=== PATIENT | male | born 1965 | race Caucasian/White ===

== ENCOUNTER 2025-08-14 06:09 | Day surgery (SDC) | payer BC, OTHER ==
[2025-08-14] MEDS: Lactated Ringers 1,000 ML IV SCH (07:18)
[2025-08-14] MEDS ORDERED: fentaNYL 50 MCG/ML SDV ONE (07:27)
[2025-08-14] MEDS ORDERED: Midazolam 1 MG/ML 2 ML SDV ONE (07:27)
[2025-08-14] MEDS ORDERED: Propofol 200 MG/20 ML SDV ONE (07:28)
[2025-08-14 08:37] VITALS: BP 120/74; PULSE 55
== END 2025-08-14 08:54 | disposition home or self-care (01) ==
LOC: JP.SDS 06:09
PROVIDERS: ATTEND Surgery
DX: Z12.11 Encounter for screening for malignant neoplasm of colon (principal); Z79.82 Long term (current) use of aspirin; Z79.899 Other long term (current) drug therapy
CPT/HCPCS: 00812-QZ; J2250; J2704; J3010; J7120